=== PATIENT | male | born 1960 | race Caucasian/White ===

== ENCOUNTER 2017-06-09 04:24 | Inpatient (IN) | payer OTHER ==
[2017-06-09] MEDS ORDERED: ACETAMINOPHEN 325 MG TAB PO (05:30)
[2017-06-09] MEDS ORDERED: NITROGLYCERIN (SL) 0.4 MG TAB SL (05:30)
[2017-06-09] MEDS ORDERED: ONDANSETRON 4 MG TAB PO (05:30)
[2017-06-09] MEDS ORDERED: NACL 0.9% 3 ML SYG IV (05:30)
[2017-06-09] MEDS: HYDROCODONE/APAP (5/325) TAB PO ×3 (05:54→19:09)
[2017-06-09 06:19] LABS: ADD MAN DIFF? NO
[2017-06-09 06:37] LABS: WHITE BLOOD COUNT 6.7 10^3/ul (4.8-10.8)
[2017-06-09 06:37] LABS: BASOPHIL # 0.1 10^3/ul (0.0-0.1); BASOPHILS % 1.2 % (0.0-2.0); EOSINOPHILS # 0.5 10^3/ul (0.0-0.5); EOSINOPHILS % 7.2 % (0.0-7.0); HEMATOCRIT 40.1 % (42.0-52.0); HEMOGLOBIN 13.2 g/dl (14.0-18.0); LYMPHOCYTES # 1.9 10^3/ul (0.8-2.9); LYMPHOCYTES % 29.2 % (15.0-51.0); MEAN CORPUSCULAR HEMOGLOBIN 30.2 pg (29.0-33.0); MEAN CORPUSCULAR HGB CONC 32.9 g/dl (32.0-37.0); MEAN CORPUSCULAR VOLUME 91.8 fl (82.0-101.0); MEAN PLATELET VOLUME 10.2 fl (7.4-10.4); MONOCYTE # 0.9 10^3/ul (0.3-0.9); MONOCYTES % 13.1 % (0.0-11.0); NEUTROPHIL # 3.3 10^3/ul (1.6-7.5); NEUTROPHILS % 48.8 % (39.0-77.0); PLATELET COUNT 183 10^3/UL (140-415); RED BLOOD COUNT 4.37 10^6/ul (4.70-6.10); RED CELL DISTRIBUTION WIDTH 13.4 % (11.5-14.5)
[2017-06-09] MEDS ORDERED: LORAZEPAM 0.5 MG TAB PO (07:00)
[2017-06-09] MEDS ORDERED: DIAZEPAM 5 MG TAB PO (07:00)
[2017-06-09] MEDS ORDERED: traMADol 50 MG TAB PO (07:00)
[2017-06-09 07:05] LABS: ALANINE AMINOTRANSFERASE 35 IU/L (13-69); ALBUMIN 3.6 g/dl (3.3-4.9); ALBUMIN/GLOBULIN RATIO 1.16; ALKALINE PHOSPHATASE 72 IU/L (42-121); ANION GAP 16 (8-16); ASPARTATE AMINO TRANSFERASE 23 IU/L (15-46); BILIRUBIN,INDIRECT 0.7 mg/dl (0-1.1); BILIRUBIN,TOTAL 0.7 mg/dl (0.2-1.3); BLOOD UREA NITROGEN 21 mg/dl (7-20); CALCIUM 8.9 mg/dl (8.4-10.2); CARBON DIOXIDE 25 mmol/L (21-31); CHLORIDE 107 mmol/L (97-110); CHOL/HDL RATIO 3.4 RATIO; CHOLESTEROL 119 mg/dl (100-200); CREATININE 1.25 mg/dl (0.61-1.24); GLUCOSE 91 mg/dl (70-220); HDL CHOLESTEROL 35 mg/dl (28-71); LDL CHOLESTEROL,CALCULATED 74 mg/dl; POTASSIUM 3.7 mmol/L (3.5-5.1); SODIUM 144 mmol/L (135-144); TOTAL PROTEIN 6.7 g/dl (6.1-8.1); TRIGLYCERIDES 52 mg/dl (0-149)
[2017-06-09 07:07] LABS: CREATINE KINASE 114 IU/L (23-200)
[2017-06-09 07:19] LABS: CK INDEX 1.5; TROPONIN-I 0.066 ng/ml (0.00-0.12)
[2017-06-09 07:43] LABS: CK-MB 1.76 ng/ml (0.0-2.4)
[2017-06-09 08:01] LABS: HEMOGLOBIN A1C 5.3 % (0-5.9)
[2017-06-09] MEDS: SOD CHLORIDE 0.9% 500 ML IV (08:04)
[2017-06-09] MEDS: LOSARTAN 50 MG TAB PO ×2 (08:32→17:31)
[2017-06-09] MEDS ORDERED: LOSARTAN 50 MG TAB PO (09:00)
[2017-06-09] MEDS: morphine 2 MG INJ IV (10:23)
[2017-06-09 13:34] LABS: CREATINE KINASE 106 IU/L (23-200)
[2017-06-09 13:48] LABS: CK INDEX 1.5; TROPONIN-I 0.037 ng/ml (0.00-0.12)
[2017-06-09 13:54] LABS: CK-MB 1.59 ng/ml (0.0-2.4)
[2017-06-09] MEDS: CALCIUM CARBONATE 750 MG CHEW TAB PO (13:55)
[2017-06-09] MEDS: SUMATRIPTAN 50 MG TAB PO (14:04)
[2017-06-09] MEDS: ATORVASTATIN 10 MG TAB PO (20:16)
[2017-06-10 06:19] LABS: ADD MAN DIFF? NO
[2017-06-10 06:38] LABS: WHITE BLOOD COUNT 6.7 10^3/ul (4.8-10.8)
[2017-06-10 06:38] LABS: BASOPHIL # 0.1 10^3/ul (0.0-0.1); BASOPHILS % 1.2 % (0.0-2.0); EOSINOPHILS # 0.5 10^3/ul (0.0-0.5); EOSINOPHILS % 6.9 % (0.0-7.0); HEMATOCRIT 41.3 % (42.0-52.0); HEMOGLOBIN 13.9 g/dl (14.0-18.0); LYMPHOCYTES # 1.9 10^3/ul (0.8-2.9); LYMPHOCYTES % 28.9 % (15.0-51.0); MEAN CORPUSCULAR HEMOGLOBIN 30.3 pg (29.0-33.0); MEAN CORPUSCULAR HGB CONC 33.7 g/dl (32.0-37.0); MEAN CORPUSCULAR VOLUME 90.2 fl (82.0-101.0); MEAN PLATELET VOLUME 10.1 fl (7.4-10.4); MONOCYTE # 0.7 10^3/ul (0.3-0.9); NEUTROPHIL # 3.5 10^3/ul (1.6-7.5); NEUTROPHILS % 51.6 % (39.0-77.0); PLATELET COUNT 191 10^3/UL (140-415); RED BLOOD COUNT 4.58 10^6/ul (4.70-6.10); RED CELL DISTRIBUTION WIDTH 13.3 % (11.5-14.5)
[2017-06-10 07:00] LABS: PHOSPHORUS 3.8 mg/dl (2.5-4.9)
[2017-06-10 07:00] LABS: MAGNESIUM 1.8 mg/dl (1.7-2.5)
[2017-06-10 07:35] LABS: ANION GAP 16 (8-16); BLOOD UREA NITROGEN 19 mg/dl (7-20); CALCIUM 8.9 mg/dl (8.4-10.2); CARBON DIOXIDE 21 mmol/L (21-31); CHLORIDE 108 mmol/L (97-110); CREATININE 1.21 mg/dl (0.61-1.24); GLUCOSE 93 mg/dl (70-220); POTASSIUM 3.6 mmol/L (3.5-5.1); SODIUM 141 mmol/L (135-144)
[2017-06-10] MEDS: LOSARTAN 50 MG TAB PO (08:17)
[2017-06-10] MEDS: morphine 2 MG INJ IV ×2 (08:17→12:21)
[2017-06-10] MEDS: ACETAMINOPHEN 650MG/20.3ML CUP PO (14:25)
[2017-06-10] MEDS: SUMATRIPTAN 50 MG TAB PO (16:43)
[2017-06-12] MEDS ORDERED: HYDROCODONE/APAP (5/325) TAB (14:53)
[2017-06-12] MEDS ORDERED: traMADol 50 MG TAB (22:47)
[2017-06-13] MEDS ORDERED: HYDROCODONE/APAP (5/325) TAB (06:48)
[2017-06-13] MEDS ORDERED: traMADol 50 MG TAB (06:59)
== END 2017-06-10 17:28 | disposition home or self-care (01) | DRG 313 ==
LOC: MS4 04:24
DX: R07.89 Other chest pain (principal); N17.9 Acute kidney failure, unspecified; I10 Essential (primary) hypertension; G43.909 Migraine, unspecified, not intractable, without status migrainosus; F41.9 Anxiety disorder, unspecified; E78.5 Hyperlipidemia, unspecified
CPT/HCPCS: 80048; 80053; 80061; 82550; 82553; 83036; 83735; 84100; 84443; 84484; 85025; 93306

== ENCOUNTER 2017-06-10 20:15 | Inpatient (IN) | payer OTHER ==
[2017-06-10 21:39] LABS: ADD MAN DIFF? NO
[2017-06-10 21:45] LABS: BASOPHIL # 0.1 10^3/ul (0.0-0.1); EOSINOPHILS # 0.4 10^3/ul (0.0-0.5); EOSINOPHILS % 5.4 % (0.0-7.0); HEMATOCRIT 42.1 % (42.0-52.0); HEMOGLOBIN 14.5 g/dl (14.0-18.0); LYMPHOCYTES # 1.9 10^3/ul (0.8-2.9); LYMPHOCYTES % 24.5 % (15.0-51.0); MEAN CORPUSCULAR HEMOGLOBIN 30.9 pg (29.0-33.0); MEAN CORPUSCULAR HGB CONC 34.4 g/dl (32.0-37.0); MEAN CORPUSCULAR VOLUME 89.8 fl (82.0-101.0); MEAN PLATELET VOLUME 10.1 fl (7.4-10.4); MONOCYTE # 0.7 10^3/ul (0.3-0.9); MONOCYTES % 9.5 % (0.0-11.0); NEUTROPHIL # 4.6 10^3/ul (1.6-7.5); NEUTROPHILS % 59.2 % (39.0-77.0); PLATELET COUNT 202 10^3/UL (140-415); RED BLOOD COUNT 4.69 10^6/ul (4.70-6.10); RED CELL DISTRIBUTION WIDTH 13.8 % (11.5-14.5)
[2017-06-10 21:45] LABS: WHITE BLOOD COUNT 7.8 10^3/ul (4.8-10.8)
[2017-06-10 22:18] LABS: ANION GAP 14 (8-16); BLOOD UREA NITROGEN 24 mg/dl (7-20); CARBON DIOXIDE 23 mmol/L (21-31); CHLORIDE 106 mmol/L (97-110); CREATININE 1.34 mg/dl (0.61-1.24); GLUCOSE 118 mg/dl (70-220); POTASSIUM 3.9 mmol/L (3.5-5.1); SODIUM 139 mmol/L (135-144)
[2017-06-10 22:33] LABS: TROPONIN-I 0.178 ng/ml (0.00-0.12)
[2017-06-10] MEDS: ASPIRIN 81 MG TAB PO (22:44)
[2017-06-10] MEDS ORDERED: ONDANSETRON 4 MG INJ IV (23:30)
[2017-06-10] MEDS ORDERED: ACETAMINOPHEN 325 MG TAB PO (23:30)
[2017-06-10] MEDS ORDERED: NITROGLYCERIN (SL) 0.4 MG TAB SL (23:30)
[2017-06-10] MEDS ORDERED: morphine 2 MG INJ IV (23:30)
[2017-06-10] MEDS ORDERED: NACL 0.9% 3 ML SYG IV (23:30)
[2017-06-11 00:13] LABS: PROTIME 12.9 Sec (11.9-14.9)
[2017-06-11 00:14] LABS: INR 0.96; PARTIAL THROMBOPLASTIN TIME 30.4 Sec (25.0-35.0)
[2017-06-11] MEDS: LORAZEPAM 0.5 MG TAB PO ×2 (00:14→11:08)
[2017-06-11] MEDS: SOD CHLORIDE 0.9% 1,000 ML IV (00:33)
[2017-06-11] MEDS: HEPARIN 1000 UNITS/ML 10 ML INJ IV ×4 (00:34→23:34)
[2017-06-11] MEDS: HEPARIN 25000 UNITS/250 ML 250 ML IV ×3 (00:34→16:48)
[2017-06-11] MEDS: ACETAMINOPHEN 325 MG TAB PO (06:29)
[2017-06-11 08:57] LABS: ADD MAN DIFF? NO
[2017-06-11 09:12] LABS: WHITE BLOOD COUNT 7.3 10^3/ul (4.8-10.8)
[2017-06-11 09:13] LABS: BASOPHIL # 0.1 10^3/ul (0.0-0.1); EOSINOPHILS # 0.5 10^3/ul (0.0-0.5); EOSINOPHILS % 6.3 % (0.0-7.0); HEMATOCRIT 41.3 % (42.0-52.0); HEMOGLOBIN 14.1 g/dl (14.0-18.0); LYMPHOCYTES # 1.7 10^3/ul (0.8-2.9); LYMPHOCYTES % 23.8 % (15.0-51.0); MEAN CORPUSCULAR HEMOGLOBIN 30.7 pg (29.0-33.0); MEAN CORPUSCULAR HGB CONC 34.1 g/dl (32.0-37.0); MEAN PLATELET VOLUME 10.2 fl (7.4-10.4); MONOCYTE # 0.8 10^3/ul (0.3-0.9); MONOCYTES % 10.4 % (0.0-11.0); NEUTROPHIL # 4.2 10^3/ul (1.6-7.5); NEUTROPHILS % 58.1 % (39.0-77.0); PLATELET COUNT 197 10^3/UL (140-415); RED BLOOD COUNT 4.59 10^6/ul (4.70-6.10); RED CELL DISTRIBUTION WIDTH 13.7 % (11.5-14.5)
[2017-06-11 09:20] LABS: PARTIAL THROMBOPLASTIN TIME 31.6 Sec (25.0-35.0)
[2017-06-11 09:36] LABS: CREATINE KINASE 106 IU/L (23-200)
[2017-06-11 09:41] LABS: ALANINE AMINOTRANSFERASE 35 IU/L (13-69); ALBUMIN/GLOBULIN RATIO 1.53; ALKALINE PHOSPHATASE 79 IU/L (42-121); ANION GAP 15 (8-16); ASPARTATE AMINO TRANSFERASE 20 IU/L (15-46); BILIRUBIN,INDIRECT 0.7 mg/dl (0-1.1); BILIRUBIN,TOTAL 0.7 mg/dl (0.2-1.3); BLOOD UREA NITROGEN 21 mg/dl (7-20); CARBON DIOXIDE 21 mmol/L (21-31); CHLORIDE 109 mmol/L (97-110); CREATININE 1.14 mg/dl (0.61-1.24); GLUCOSE 91 mg/dl (70-220); POTASSIUM 3.8 mmol/L (3.5-5.1); SODIUM 141 mmol/L (135-144); TOTAL PROTEIN 6.6 g/dl (6.1-8.1)
[2017-06-11 09:52] LABS: CK-MB 2.15 ng/ml (0.0-2.4)
[2017-06-11] MEDS ORDERED: SUMATRIPTAN 50 MG TAB PO (11:00)
[2017-06-11] MEDS: LISINOPRIL 10 MG TAB PO (11:54)
[2017-06-11] MEDS: HYDROCODONE/APAP (5/325) TAB PO ×5 (11:54→20:29)
[2017-06-11] MEDS: MAGNESIUM SULFATE 2 GM/50 ML 50 ML IVPB (12:32)
[2017-06-11 15:21] LABS: CREATINE KINASE 102 IU/L (23-200)
[2017-06-11 15:34] LABS: CK INDEX 1.7; TROPONIN-I 0.129 ng/ml (0.00-0.12)
[2017-06-11 15:39] LABS: CK-MB 1.75 ng/ml (0.0-2.4)
[2017-06-11 16:11] LABS: PARTIAL THROMBOPLASTIN TIME 31.4 Sec (25.0-35.0)
[2017-06-11] MEDS: IBUPROFEN 600 MG TAB PO (20:29)
[2017-06-11] MEDS: ATORVASTATIN 80 MG TAB PO (20:29)
[2017-06-11] MEDS: ONDANSETRON 4 MG INJ IV (20:35)
[2017-06-11] MEDS: KETOROLAC 30 MG INJ IV (21:34)
[2017-06-12] MEDS: SOD CHLORIDE 0.9% 1,000 ML IV ×2 (01:38→14:57)
[2017-06-12] MEDS: HYDROCODONE/APAP (5/325) TAB PO ×3 (01:42→14:54)
[2017-06-12] MEDS: HEPARIN 25000 UNITS/250 ML 250 ML IV ×2 (04:45→08:28)
[2017-06-12] MEDS: traMADol 50 MG TAB PO ×3 (05:56→22:48)
[2017-06-12 06:46] LABS: ADD MAN DIFF? NO
[2017-06-12 06:49] LABS: BASOPHIL # 0.1 10^3/ul (0.0-0.1); BASOPHILS % 0.9 % (0.0-2.0); EOSINOPHILS # 0.4 10^3/ul (0.0-0.5); EOSINOPHILS % 5.7 % (0.0-7.0); HEMATOCRIT 40.4 % (42.0-52.0); HEMOGLOBIN 13.6 g/dl (14.0-18.0); LYMPHOCYTES # 1.9 10^3/ul (0.8-2.9); LYMPHOCYTES % 24.8 % (15.0-51.0); MEAN CORPUSCULAR HEMOGLOBIN 30.8 pg (29.0-33.0); MEAN CORPUSCULAR HGB CONC 33.7 g/dl (32.0-37.0); MEAN CORPUSCULAR VOLUME 91.6 fl (82.0-101.0); MEAN PLATELET VOLUME 10.1 fl (7.4-10.4); MONOCYTE # 0.7 10^3/ul (0.3-0.9); MONOCYTES % 9.7 % (0.0-11.0); NEUTROPHIL # 4.4 10^3/ul (1.6-7.5); NEUTROPHILS % 58.4 % (39.0-77.0); PLATELET COUNT 190 10^3/UL (140-415); RED BLOOD COUNT 4.41 10^6/ul (4.70-6.10); RED CELL DISTRIBUTION WIDTH 13.8 % (11.5-14.5)
[2017-06-12 06:49] LABS: WHITE BLOOD COUNT 7.6 10^3/ul (4.8-10.8)
[2017-06-12 07:29] LABS: ANION GAP 15 (8-16); BLOOD UREA NITROGEN 23 mg/dl (7-20); CALCIUM 8.8 mg/dl (8.4-10.2); CARBON DIOXIDE 26 mmol/L (21-31); CHLORIDE 107 mmol/L (97-110); CREATININE 1.24 mg/dl (0.61-1.24); GLUCOSE 90 mg/dl (70-220); MAGNESIUM 2.1 mg/dl (1.7-2.5); SODIUM 144 mmol/L (135-144)
[2017-06-12] MEDS: LISINOPRIL 10 MG TAB PO (08:14)
[2017-06-12] MEDS: HEPARIN 1000 UNITS/ML 10 ML INJ IV (08:24)
[2017-06-12] MEDS: ONDANSETRON 4 MG INJ IV ×2 (08:44→14:50)
[2017-06-12] MEDS ORDERED: IODIXANOL LOCM 100 ML BTL ×3 (12:44→13:32)
[2017-06-12] MEDS ORDERED: LIDOCAINE 100 MG SYRINGE (12:44)
[2017-06-12] MEDS ORDERED: FENTAnyl 50 MCG/ML VIAL (12:45)
[2017-06-12] MEDS ORDERED: MIDAZOLAM 1 MG/ML 2 ML INJ (12:45)
[2017-06-12] MEDS ORDERED: ASPIRIN 325 MG TAB (12:47)
[2017-06-12] MEDS ORDERED: CLOPIDOGREL 300 MG TAB ×3 (13:24→14:25)
[2017-06-12] MEDS ORDERED: HEPARIN 1000 UNITS/ML 10 ML INJ (13:32)
[2017-06-12] MEDS ORDERED: NITROGLYCERIN (IC) 100 MCG/ML INJ ×2 (13:37→13:46)
[2017-06-12] MEDS ORDERED: VERAPAMIL 5 MG INJ ×2 (13:37→13:46)
[2017-06-12] MEDS ORDERED: OXYCODONE/ACETAMINOPHEN (5/325) TAB PO (14:30)
[2017-06-12] MEDS ORDERED: ACETAMINOPHEN 325 MG TAB PO (14:30)
[2017-06-12] MEDS ORDERED: morphine 2 MG INJ IV (14:30)
[2017-06-12 17:05] LABS: PARTIAL THROMBOPLASTIN TIME > 180.0 Sec (25.0-35.0)
[2017-06-12] MEDS: OXYCODONE/ACETAMINOPHEN (5/325) TAB PO (17:18)
[2017-06-12 18:20] LABS: CANNABINOIDS Negative (NEGATIVE)
[2017-06-12 19:28] LABS: AMPHETAMINE/METHAMPHETAMINE Negative (NEGATIVE); BARBITURATES Negative (NEGATIVE); BENZODIAZEPINES Negative (NEGATIVE); COCAINE Negative (NEGATIVE); OPIATES Positive (NEGATIVE)
[2017-06-12] MEDS: DOCUSATE SODIUM 100 MG CAP PO (21:30)
[2017-06-12] MEDS: ATORVASTATIN 80 MG TAB PO (21:30)
[2017-06-13] MEDS: SOD CHLORIDE 0.9% 1,000 ML IV (02:08)
[2017-06-13 06:27] LABS: ADD MAN DIFF? NO
[2017-06-13 06:34] LABS: BASOPHILS % 0.5 % (0.0-2.0); EOSINOPHILS # 0.2 10^3/ul (0.0-0.5); EOSINOPHILS % 2.9 % (0.0-7.0); HEMATOCRIT 36.8 % (42.0-52.0); HEMOGLOBIN 12.7 g/dl (14.0-18.0); LYMPHOCYTES # 1.8 10^3/ul (0.8-2.9); LYMPHOCYTES % 21.9 % (15.0-51.0); MEAN CORPUSCULAR HEMOGLOBIN 31.5 pg (29.0-33.0); MEAN CORPUSCULAR HGB CONC 34.5 g/dl (32.0-37.0); MEAN CORPUSCULAR VOLUME 91.3 fl (82.0-101.0); MONOCYTE # 0.8 10^3/ul (0.3-0.9); MONOCYTES % 10.2 % (0.0-11.0); NEUTROPHIL # 5.2 10^3/ul (1.6-7.5); NEUTROPHILS % 64.3 % (39.0-77.0); PLATELET COUNT 168 10^3/UL (140-415); RED BLOOD COUNT 4.03 10^6/ul (4.70-6.10); RED CELL DISTRIBUTION WIDTH 13.5 % (11.5-14.5)
[2017-06-13 06:56] LABS: CREATINE KINASE 96 IU/L (23-200)
[2017-06-13] MEDS: traMADol 50 MG TAB PO (07:00)
[2017-06-13 07:01] LABS: ALANINE AMINOTRANSFERASE 34 IU/L (13-69); ALBUMIN 3.3 g/dl (3.3-4.9); ALBUMIN/GLOBULIN RATIO 1.13; ALKALINE PHOSPHATASE 70 IU/L (42-121); ANION GAP 16 (8-16); ASPARTATE AMINO TRANSFERASE 25 IU/L (15-46); BILIRUBIN,INDIRECT 0.7 mg/dl (0-1.1); BILIRUBIN,TOTAL 0.7 mg/dl (0.2-1.3); BLOOD UREA NITROGEN 19 mg/dl (7-20); CALCIUM 8.6 mg/dl (8.4-10.2); CARBON DIOXIDE 22 mmol/L (21-31); CHLORIDE 108 mmol/L (97-110); CHOL/HDL RATIO 3.8 RATIO; CHOLESTEROL 107 mg/dl (100-200); GLUCOSE 77 mg/dl (70-220); HDL CHOLESTEROL 28 mg/dl (28-71); LDL CHOLESTEROL,CALCULATED 63 mg/dl; MAGNESIUM 1.8 mg/dl (1.7-2.5); POTASSIUM 3.8 mmol/L (3.5-5.1); SODIUM 142 mmol/L (135-144); TOTAL PROTEIN 6.2 g/dl (6.1-8.1); TRIGLYCERIDES 82 mg/dl (0-149)
[2017-06-13 07:10] LABS: CK INDEX 3.6
[2017-06-13 07:21] LABS: CK-MB 3.44 ng/ml (0.0-2.4); TROPONIN-I 0.546 ng/ml (0.00-0.12)
[2017-06-13] MEDS: CLOPIDOGREL 75 MG TAB PO (08:44)
[2017-06-13] MEDS: LISINOPRIL 10 MG TAB PO (08:45)
== END 2017-06-13 10:15 | disposition home or self-care (01) | DRG 247 ==
LOC: ICU 23:28 → E/R 20:15 → ICU 06-12 16:45 → MS4 23:01
PROC: 027035Z Dilation of Coronary Artery, One Artery with Two Drug-eluting Intraluminal Devices, Percutaneous Approach (ICD-10-PCS; principal; 2017-06-12 12:30)
PROC: 02C03ZZ Extirpation of Matter from Coronary Artery, One Artery, Percutaneous Approach (ICD-10-PCS; 2017-06-12 12:30)
PROC: 4A023N7 Measurement of Cardiac Sampling and Pressure, Left Heart, Percutaneous Approach (ICD-10-PCS; 2017-06-12 12:30)
PROC: B211YZZ Fluoroscopy of Multiple Coronary Arteries using Other Contrast (ICD-10-PCS; 2017-06-12 12:30)
DX: I21.4 Non-ST elevation (NSTEMI) myocardial infarction (principal); N17.9 Acute kidney failure, unspecified; I10 Essential (primary) hypertension; F41.9 Anxiety disorder, unspecified; I25.10 Atherosclerotic heart disease of native coronary artery without angina pectoris; G43.909 Migraine, unspecified, not intractable, without status migrainosus; Z87.891 Personal history of nicotine dependence
CPT/HCPCS: 36415; 71010; 80048; 80053; 80061; 80307; 82550; 82553; 83735; 84484; 85025; 85610; 85730; 93005; 93454; 99291-25

== ENCOUNTER 2017-06-30 21:32 | Inpatient (IN) | payer OTHER ==
[2017-06-30] MEDS: SOD CHLORIDE 0.9% 500 ML IV (21:42)
[2017-06-30 23:01] LABS: ADD MAN DIFF? NO
[2017-06-30 23:04] LABS: BASOPHIL # 0.1 10^3/ul (0.0-0.1); BASOPHILS % 1.8 % (0.0-2.0); EOSINOPHILS # 0.7 10^3/ul (0.0-0.5); EOSINOPHILS % 10.1 % (0.0-7.0); HEMATOCRIT 48.3 % (42.0-52.0); HEMOGLOBIN 15.2 g/dl (14.0-18.0); LYMPHOCYTES # 1.9 10^3/ul (0.8-2.9); LYMPHOCYTES % 29.2 % (15.0-51.0); MEAN CORPUSCULAR HEMOGLOBIN 30.8 pg (29.0-33.0); MEAN CORPUSCULAR HGB CONC 31.5 g/dl (32.0-37.0); MEAN PLATELET VOLUME 9.3 fl (7.4-10.4); MONOCYTE # 0.7 10^3/ul (0.3-0.9); MONOCYTES % 10.7 % (0.0-11.0); NEUTROPHIL # 3.1 10^3/ul (1.6-7.5); PLATELET COUNT 196 10^3/UL (140-415); RED BLOOD COUNT 4.93 10^6/ul (4.70-6.10); RED CELL DISTRIBUTION WIDTH 13.3 % (11.5-14.5)
[2017-06-30 23:04] LABS: WHITE BLOOD COUNT 6.5 10^3/ul (4.8-10.8)
[2017-06-30 23:26] LABS: ANION GAP 14 (8-16); BLOOD UREA NITROGEN 18 mg/dl (7-20); CALCIUM 9.5 mg/dl (8.4-10.2); CARBON DIOXIDE 27 mmol/L (21-31); CHLORIDE 105 mmol/L (97-110); CREATININE 1.37 mg/dl (0.61-1.24); GLUCOSE 89 mg/dl (70-220); SODIUM 142 mmol/L (135-144)
[2017-06-30] MEDS: hydrALAzine 20 MG INJ IV (23:28)
[2017-06-30 23:39] LABS: B-TYPE NATRIURETIC PEPTIDE 72 PG/ML (0-125)
[2017-06-30 23:41] LABS: TROPONIN-I < 0.012 ng/ml (0.00-0.12)
[2017-07-01] MEDS ORDERED: ACETAMINOPHEN 325 MG TAB PO ×2 (01:30→02:30)
[2017-07-01] MEDS: IBUPROFEN 600 MG TAB PO (01:51)
[2017-07-01] MEDS: ONDANSETRON 4 MG INJ IV (01:52)
[2017-07-01] MEDS: SOD CHLORIDE 0.9% 1,000 ML IV ×2 (02:28→13:04)
[2017-07-01] MEDS ORDERED: NA PHOSPHATE/BIPHOS 133 ML ENEMA PR (02:30)
[2017-07-01] MEDS ORDERED: MAGNESIUM HYDROXIDE 30ML CUP PO (02:30)
[2017-07-01] MEDS ORDERED: NITROGLYCERIN (SL) 0.4 MG TAB SL (02:30)
[2017-07-01] MEDS ORDERED: NACL 0.9% 3 ML SYG IV (02:30)
[2017-07-01] MEDS ORDERED: DOCUSATE SODIUM 100 MG CAP PO (02:30)
[2017-07-01] MEDS ORDERED: ALBUTEROL/IPRATROPIUM (NEB) 3 ML AMP HHN (02:30)
[2017-07-01] MEDS ORDERED: ONDANSETRON 4 MG INJ IV (02:30)
[2017-07-01] MEDS ORDERED: hydrALAzine 20 MG INJ IV (02:30)
[2017-07-01] MEDS: HYDROCODONE/APAP (5/325) TAB PO ×2 (04:03→08:35)
[2017-07-01] MEDS: LORAZEPAM 0.5 MG TAB PO (04:03)
[2017-07-01] MEDS ORDERED: PANTOPRAZOLE (EC) 40 MG TAB PO (06:00)
[2017-07-01] MEDS: traMADol 50 MG TAB PO ×2 (06:23→13:04)
[2017-07-01] MEDS: SUMATRIPTAN 50 MG TAB PO ×2 (06:35→09:45)
[2017-07-01 06:58] LABS: FREE T4 (FREE THYROXINE) 1.13 ng/dl (0.64-1.79)
[2017-07-01] MEDS: FAMOTIDINE 20 MG TAB PO (08:27)
[2017-07-01] MEDS: ASPIRIN (EC) 325 MG TAB PO (08:27)
[2017-07-01] MEDS: LORATADINE 10 MG TAB PO (08:28)
[2017-07-01] MEDS: LOSARTAN 50 MG TAB PO ×2 (08:29→22:06)
[2017-07-01] MEDS: HEPARIN 5,000 UNIT/0.5 ML VIAL SC ×2 (08:32→21:07)
[2017-07-01] MEDS: CLOPIDOGREL 75 MG TAB PO ×2 (08:48→09:45)
[2017-07-01] MEDS: morphine 2 MG INJ IV (11:28)
[2017-07-01] MEDS ORDERED: DOCUSATE SODIUM 250 MG CAP PO (14:00)
[2017-07-01] MEDS: LORAZEPAM 2 MG INJ IV ×2 (14:03→22:07)
[2017-07-01 14:16] LABS: CREATINE KINASE 104 IU/L (23-200)
[2017-07-01 14:18] LABS: CK INDEX 1.8
[2017-07-01 14:22] LABS: CK-MB 1.83 ng/ml (0.0-2.4); TROPONIN-I < 0.012 ng/ml (0.00-0.12)
[2017-07-01] MEDS: OXYMETAZOLINE 0.05% 15 ML NAS SPRAY NASAL ×2 (15:00→21:13)
[2017-07-01] MEDS: ATORVASTATIN 40 MG TAB PO (22:07)
[2017-07-02 05:41] LABS: ADD MAN DIFF? NO
[2017-07-02 05:43] LABS: BASOPHIL # 0.1 10^3/ul (0.0-0.1); BASOPHILS % 1.7 % (0.0-2.0); EOSINOPHILS # 0.4 10^3/ul (0.0-0.5); EOSINOPHILS % 7.4 % (0.0-7.0); HEMATOCRIT 38.3 % (42.0-52.0); HEMOGLOBIN 12.9 g/dl (14.0-18.0); LYMPHOCYTES # 1.8 10^3/ul (0.8-2.9); LYMPHOCYTES % 29.3 % (15.0-51.0); MEAN CORPUSCULAR HGB CONC 33.7 g/dl (32.0-37.0); MEAN CORPUSCULAR VOLUME 92.1 fl (82.0-101.0); MONOCYTE # 0.6 10^3/ul (0.3-0.9); MONOCYTES % 10.7 % (0.0-11.0); NEUTROPHILS % 50.7 % (39.0-77.0); PLATELET COUNT 167 10^3/UL (140-415); RED BLOOD COUNT 4.16 10^6/ul (4.70-6.10); RED CELL DISTRIBUTION WIDTH 13.2 % (11.5-14.5)
[2017-07-02 05:55] LABS: HEMOGLOBIN A1C 5.2 % (0-5.9)
[2017-07-02 06:06] LABS: ALANINE AMINOTRANSFERASE 50 IU/L (13-69); ALBUMIN 3.3 g/dl (3.3-4.9); ALBUMIN/GLOBULIN RATIO 1.17; ALKALINE PHOSPHATASE 64 IU/L (42-121); ANION GAP 12 (8-16); ASPARTATE AMINO TRANSFERASE 23 IU/L (15-46); BILIRUBIN,INDIRECT 0.4 mg/dl (0-1.1); BILIRUBIN,TOTAL 0.4 mg/dl (0.2-1.3); BLOOD UREA NITROGEN 25 mg/dl (7-20); CALCIUM 8.9 mg/dl (8.4-10.2); CARBON DIOXIDE 24 mmol/L (21-31); CHLORIDE 109 mmol/L (97-110); CREATININE 1.39 mg/dl (0.61-1.24); GLUCOSE 91 mg/dl (70-220); MAGNESIUM 1.9 mg/dl (1.7-2.5); PHOSPHORUS 3.4 mg/dl (2.5-4.9); POTASSIUM 3.8 mmol/L (3.5-5.1); SODIUM 141 mmol/L (135-144); TOTAL PROTEIN 6.1 g/dl (6.1-8.1)
[2017-07-02 06:09] LABS: CHOL/HDL RATIO 2.2 RATIO; HDL CHOLESTEROL 27 mg/dl (28-71); LDL CHOLESTEROL,CALCULATED 22 mg/dl; TRIGLYCERIDES 60 mg/dl (0-149)
[2017-07-02 06:09] LABS: CHOLESTEROL 61 mg/dl (100-200)
[2017-07-02 06:38] LABS: THYROID STIMULATING HORMONE 0.925 MIU/L (0.465-4.680)
[2017-07-02] MEDS: LORATADINE 10 MG TAB PO (08:10)
[2017-07-02] MEDS: ASPIRIN (EC) 325 MG TAB PO (08:10)
[2017-07-02] MEDS: FAMOTIDINE 20 MG TAB PO (08:10)
[2017-07-02] MEDS: OXYMETAZOLINE 0.05% 15 ML NAS SPRAY NASAL ×2 (08:11→21:34)
[2017-07-02] MEDS: LOSARTAN 50 MG TAB PO ×2 (08:11→22:07)
[2017-07-02] MEDS: HYDROCODONE/APAP (5/325) TAB PO ×3 (08:12→17:24)
[2017-07-02] MEDS: HEPARIN 5,000 UNIT/0.5 ML VIAL SC ×2 (08:14→21:21)
[2017-07-02] MEDS: traMADol 50 MG TAB PO (10:18)
[2017-07-02] MEDS: CLOPIDOGREL 75 MG TAB PO (10:18)
[2017-07-02] MEDS: LORAZEPAM 2 MG INJ IV ×2 (11:57→21:33)
[2017-07-02] MEDS: SUMATRIPTAN 50 MG TAB PO (14:36)
[2017-07-02] MEDS: ATORVASTATIN 40 MG TAB PO (22:07)
[2017-07-03 05:25] LABS: ADD MAN DIFF? NO
[2017-07-03 05:32] LABS: WHITE BLOOD COUNT 6.5 10^3/ul (4.8-10.8)
[2017-07-03 05:32] LABS: BASOPHIL # 0.1 10^3/ul (0.0-0.1); BASOPHILS % 1.6 % (0.0-2.0); EOSINOPHILS # 0.5 10^3/ul (0.0-0.5); EOSINOPHILS % 7.1 % (0.0-7.0); HEMATOCRIT 41.6 % (42.0-52.0); HEMOGLOBIN 14.1 g/dl (14.0-18.0); LYMPHOCYTES % 30.7 % (15.0-51.0); MEAN CORPUSCULAR HEMOGLOBIN 30.7 pg (29.0-33.0); MEAN CORPUSCULAR HGB CONC 33.9 g/dl (32.0-37.0); MEAN CORPUSCULAR VOLUME 90.6 fl (82.0-101.0); MONOCYTE # 0.7 10^3/ul (0.3-0.9); MONOCYTES % 10.5 % (0.0-11.0); NEUTROPHIL # 3.2 10^3/ul (1.6-7.5); NEUTROPHILS % 49.9 % (39.0-77.0); PLATELET COUNT 178 10^3/UL (140-415); RED BLOOD COUNT 4.59 10^6/ul (4.70-6.10); RED CELL DISTRIBUTION WIDTH 13.2 % (11.5-14.5)
[2017-07-03 06:02] LABS: ANION GAP 15 (8-16); BLOOD UREA NITROGEN 24 mg/dl (7-20); CALCIUM 9.1 mg/dl (8.4-10.2); CARBON DIOXIDE 24 mmol/L (21-31); CHLORIDE 108 mmol/L (97-110); CREATININE 1.34 mg/dl (0.61-1.24); GLUCOSE 97 mg/dl (70-220); POTASSIUM 3.7 mmol/L (3.5-5.1); SODIUM 143 mmol/L (135-144)
[2017-07-03] MEDS: FAMOTIDINE 20 MG TAB PO (08:22)
[2017-07-03] MEDS: LORATADINE 10 MG TAB PO (08:22)
[2017-07-03] MEDS: LOSARTAN 50 MG TAB PO (08:22)
[2017-07-03] MEDS: ASPIRIN (EC) 325 MG TAB PO (08:22)
[2017-07-03] MEDS: OXYMETAZOLINE 0.05% 15 ML NAS SPRAY NASAL (08:22)
[2017-07-03] MEDS: CLOPIDOGREL 75 MG TAB PO (08:22)
[2017-07-03] MEDS: HYDROCODONE/APAP (5/325) TAB PO (08:23)
[2017-07-03] MEDS: HEPARIN 5,000 UNIT/0.5 ML VIAL SC (08:25)
[2017-07-03] MEDS: INFLUENZA VIRUS VACCINE 0.5 ML SYG IM* (11:20)
[2017-07-04] MEDS ORDERED: INFLUENZA VIRUS VACCINE 0.5 ML (DISPENSING) IM* (09:00)
== END 2017-07-03 12:16 | disposition home or self-care (01) | DRG 305 ==
LOC: MS3 07-01 01:24 → E/R 21:32
DX: I16.0 Hypertensive urgency (principal); F41.9 Anxiety disorder, unspecified; R07.89 Other chest pain; I25.10 Atherosclerotic heart disease of native coronary artery without angina pectoris; I10 Essential (primary) hypertension; G43.909 Migraine, unspecified, not intractable, without status migrainosus; I25.2 Old myocardial infarction; Z86.19 Personal history of other infectious and parasitic diseases; Z95.5 Presence of coronary angioplasty implant and graft; Z91.19 Patient's noncompliance with other medical treatment and regimen
CPT/HCPCS: 36415; 70450; 70551; 71045; 80048; 80053; 80061; 82550; 82553; 83036; 83735; 83880; 84100; 84439; 84443; 84484; 85025; 90686; 93005; 96374; 96375; 99291-25